=== PATIENT | female | born 1970 | race Caucasian/White ===

== ENCOUNTER 2018-01-09 17:52 | Emergency (ER) | END 2018-01-09 19:57 | disposition home or self-care (01) ==

== ENCOUNTER 2018-09-24 18:49 | Emergency (ER) | payer SELFPAY ==
[~2018-09-24] VITALS: Wt 71.6 kg
[~2018-09-24 18:49] MED LIST: IBUP-1561 PO
[2018-09-24 18:53] VITALS: BP 130/64; PULSE 86; RESP 18
[2018-09-24] MEDS ORDERED: ONDANSETRON (ODT) 4 MG TAB ODT STA (19:02)
[2018-09-24] MEDS ORDERED: ACETAMINOPHEN 325 MG TAB PO ONE (19:30)
[2018-09-24] MEDS ORDERED: ONDA8TAB14 PO (19:43)
[2018-09-24] MEDS ORDERED: ACET500C5 PO (19:43)
--- NOTE | 2018-09-24 19:47 | ERD ---
ER Documentation Chief Complaint Chief Complaint vomiting, body aches x's 1 day HPI This 48-year-old female presents with vomiting body aches starting today. She also has bitemporal headache. She has a sensation of palpitations as well. She has normal pulse at triage. She denies any significant abdominal pain, urinary complaints, measured fevers. ROS All systems reviewed and are negative except as per history of present illness. Medications Home Meds Active Scripts Acetaminophen* (Tylophen*) 500 Mg Capsule, 1 CAP PO Q6H PRN for PAIN AND OR ELEVATED TEMP, #20 CAP Prov:KENNEDY AUGUSTIN MD 09/24/18 Ondansetron (Ondansetron Odt) 8 Mg Tab.rapdis, 8 MG PO Q6H PRN for NAUSEA AND/OR VOMITING, #8 TAB Prov:KENNEDY AUGUSTIN MD 09/24/18 Ibuprofen* (Motrin*) 400 Mg Tab, 400 MG PO Q6H PRN for PAIN AND OR ELEVATED TEMP, #30 TAB Prov:FER HICKS PA-C 01/09/18 Allergies Allergies: Coded Allergies: No Known Allergy (Unverified , 09/24/18) PMhx/Soc History of Surgery: Yes (Fibroma removal) Anesthesia Reaction: No Hx Neurological Disorder: No Hx Respiratory Disorders: No Hx Cardiac Disorders: No Hx Psychiatric Problems: No Hx Miscellaneous Medical Probl: No Hx Alcohol Use: Yes (Sometimes) Hx Substance Use: No Hx Tobacco Use: No Smoking Status: Never smoker FmHx Family History: No diabetes, No coronary disease, No other Physical Exam Vitals Vital Signs Date Temp Pulse Resp B/P (MAP) Pulse Ox O2 O2 Flow FiO2 Time Delivery Rate 09/24/18 97.4 86 18 130/64 98 18:53 (86) Physical Exam Const: No acute distress Head: Atraumatic patient elicits bitemporal headache Eyes: Normal Conjunctiva ENT: Normal External Ears, Nose and Mouth. Eyes Michael and extraocular movements intact. Neck: Full range of motion. No meningismus. Resp: Clear to auscultation bilaterally Cardio: Regular rate and rhythm, no murmurs Abd: Soft, non tender, non distended. Normal bowel sounds Skin: No petechiae or rashes Back: No midline or flank tenderness Ext: No cyanosis, or edema Neur: Awake and alert Psych: Normal Mood and Affect Results 24 hrs Laboratory Tests Test 09/24/18 19:17 09/24/18 19:28 POC Beta HCG, Qualitative NEGATIVE Bedside Urine pH (LAB) 6.5 Bedside Urine Protein (LAB) Negative Bedside Urine Glucose (UA) Negative Bedside Urine Ketones (LAB) Negative Bedside Urine Blood Negative Bedside Urine Nitrite (LAB) Negative Bedside Urine Leukocyte Esterase (L Negative Current Medications Medications Dose Sig/Ami Start Time Status Last (Trade) Ordered Route PRN Stop Time Admin Dose Reason Admin Ondansetron 8 mg ONCE STAT 09/24/18 DC 09/24/18 HCl (Zofran ODT 19:02 19:15 Odt) 09/24/18 19:04 650 mg ONCE ONCE 09/24/18 DC 09/24/18 Acetaminophen PO 19:30 19:15 (Tylenol 09/24/18 19:31 Tab) Procedures/MDM EKG: Rate/Rhythm: Normal Sinus Rhythm and rate equals 88 QRS, ST, T-waves: No changes consistent w/ acute ischemia Impression: No evidence of ischemia or arrhythmia Urine is negative and hCG is negative. Patient was given Zofran and Tylenol. Patient was well-appearing throughout the ER course. Patient presents with body aches, vomiting, vaginal headache suggestive of early viral illness. Current signs or symptoms do not suggest intracranial cause of vomiting or deficits patient is well-appearing. Will treat with Tylenol, Zofran, further observation at home and return precautions. The patient was stable with no new complaints during the ER course. Clinically, there is no current evidence to suggest meningitis, sepsis, acute abdomen, pneumonia, stroke, acute coronary syndrome, pulmonary embolism, aortic dissection or any other emergent condition appearing to require further evaluation or hospitalization. Patient counseled regarding my diagnostic impression and care plan. Prior to discharge all questions answered. Pt agrees with treatment plan and understands strict return precautions. Pt is instructed to follow up with primary care provider within 24- 48 hours. Precautionary instructions provided including instructions to return to the ER if not improving or for any worsening or changing symptoms or concerns. Departure Diagnosis: Primary Impression: Vomiting Vomiting type: unspecified Vomiting Intractability: unspecified Nausea presence: unspecified Qualified Codes: R11.10 - Vomiting, unspecified Condition: Stable Patient Instructions: Headache, Unspecified, Vomiting (6Y-Adult) Additional Instructions: Probablamente un virus que dura 2-4 lala. cheque otro vez en el proximo kwasi para mas simptomas- vomito, dolor, harpreet, problemas con respirando, o con benson doctor primario. KENNEDY AUGUSTIN MD Sep 24, 2018 19:47
== END 2018-09-24 20:15 | disposition home or self-care (01) ==
LOC: FTE 18:49
DX: R11.10 Vomiting, unspecified (principal)
CPT/HCPCS: 81003; 81025; 93005